=== PATIENT | female | born 1955 | race Caucasian/White ===

== ENCOUNTER 2022-09-23 08:48 | Emergency (ER) | payer MEDICARE, BC, SELFPAY ==
[2022-09-23 09:16] VITALS: BP 164/93; PULSE 75; RESP 16; TEMP 37.1; O2SAT 97; BMI 25.7
--- NOTE | 2022-09-23 10:23 | CRLHL7_ITS ---
For Patients: As a result of the Century Cures Act, medical imaging exams and procedure reports are released immediately into your electronic medical record. You may view this report before your referring provider. If you have questions, please contact your health care provider. INDICATION: Left hip pain. TECHNIQUE: AP pelvis. FINDINGS: Moderate degenerative arthritic change of the left hip with narrowing, spurring, and sclerosis. Degenerative change of the symphysis pubis. No fracture or dislocation. The sacroiliac joints are unremarkable. Surgical clip right lower quadrant. 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 Dictated by Jan Nova MD @ 09/23/2022 11:11:02 AM (Electronically Signed)
--- NOTE | 2022-09-23 10:24 | ED.GENADULT ---
HPI - General Adult General Chief complaint: Hip Injury/Pain Stated complaint: left hip pain Time Seen by Provider: 09/23/22 10:19 History of Present Illness HPI narrative: This 67-year-old female comes in with pain along the left iliac crest. This began yesterday. She does not report any particular injury event or strenuous activity to cause these symptoms. She states that she did not sleep well last night because this pain. The pain is worse when ambulating and relieved when laying on her right side. The pain does not radiate down her left leg. She does have some pain extending toward her low back. Related Data Previous Rx's Medication Instructions Recorded hydrocodone 5 mg-acetaminophen 325 1 tab PO Q4-6H PRN pain #15 tabs 09/23/22 mg tablet methylprednisolone 4 mg tablets in See Rx Instructions PO .COMPLEX 09/23/22 a dose pack (Medrol (Neto)) #21 ea Allergies Allergy/AdvReac Type Severity Reaction Status Date / Time No Known Drug Allergies Allergy Verified 09/23/22 09:18 Review of Systems Status of ROS: Reports: 10 or more systems reviewed and unremarkable except as noted in History and below Narrative: Constitutional: No fevers, no weight gain or loss. Eyes: No discharge. No vision changes. HENT: No congestion, no sore throat, no ear pain. Cardiovascular: No chest pain, no palpitations. Respiratory: No shortness of breath, no wheezes, no cough. Gastrointestinal: No abdominal pain, no vomiting, no diarrhea. Genitourinary: No dysuria, no hematuria. Musculoskeletal: Normal range of motion. Pain in the left iliac crest as described above. Skin: No rashes, no pruritis. Neurological: No dizziness, weakness, sensory change, speech change. Endo/Heme/Allergies: No bruising or bleeding. No polydipsia. Pysch: no suicidality, no anxiety, no insomnia. All other systems reviewed and are negative. Exam Narrative: Exam Narrative: Constitutional: Well-developed, well-nourished, no acute distress. HEENT: Normocephalic, atraumatic. Neck: Normal range of motion. Nontender. Supple. Heart: Intact distal pulses. Lungs: No chest discomfort. No wheezes, rhonchi, or rales. Abdomen: Nontender. Back: Normal range of motion. Extremities: Normal range of motion. She is able to ambulate normally but this causes worsening pain. She is able to stand on her left leg and extend her right leg. When standing on her right leg and extending her left leg laterally she has some increased pain. Skin: Intact. No rash. Warm. No erythema or pallor. Neurologic: No altered sensation. No weakness. Alert and oriented. Psychiatric: No suicidality. No anxiety or depression. No insomnia. Nursing notes and vitals signs are reviewed. Const: Vital Signs, click to edit/add: Vital Signs - 24 hr 09/23/22 09:16 Temperature 98.7 F Pulse Rate [Right Pulse Oximeter] 75 Respiratory Rate 16 Blood Pressure [Ri ght Upper Arm] 164/93 H Pulse Oximetry 97 Oxygen Delivery Me thod Room Air Course Vital Signs Vital signs: Initial Vital Signs Temperature 98.7 F 09/23/22 09:16 Temperature Source Temporal Artery Scan 09/23/22 09:16 Pulse Rate 75 09/23/22 09:16 Pulse Rhythm 09/23/22 09:16 Respiratory Rate 16 09/23/22 09:16 Blood Pressure 164/93 H 09/23/22 09:16 Blood Pressure Mean 116 09/23/22 09:16 Blood Pressure Position Sitting 09/23/22 09:16 Pulse Oximetry 97 09/23/22 09:16 Oxygen Delivery Method 09/23/22 09:16 Vital Signs Temperature 98.7 F 09/23/22 09:16 Pulse Rate 75 09/23/22 09:16 Respiratory Rate 16 09/23/22 09:16 Blood Pressure 164/93 H 09/23/22 09:16 Pulse Oximetry 97 09/23/22 09:16 Oxygen Delivery Method 09/23/22 09:16 Temperature 98.7 F 09/23/22 09:16 Pulse Rate 75 09/23/22 09:16 Respiratory Rate 16 09/23/22 09:16 Blood Pressure 164/93 H 09/23/22 09:16 Pulse Oximetry 97 09/23/22 09:16 Oxygen Delivery Method 09/23/22 09:16 Medical Decision Making MDM Narrative Medical decision making narrative: This patient comes in with left hip pain as described above. There was no particular injury event or strenuous activity to bring about this pain. It was significant enough where she had difficulty sleeping last night. Her exam is normal. She is able to stand on that left leg independently but this does produce pain. X-ray of the pelvis shows some [id number] degenerative changes. There are no other findings to explain her pain. She received a prescription for Standard and is encouraged to be active as tolerated. She may need follow-up with orthopedic clinic or perhaps an MRI if worsening. Imaging Data XR Pelvis: Radiologist's impression: FINDINGS: Moderate degenerative arthritic change of the left hip with narrowing, spurring, and sclerosis. Degenerative change of the symphysis pubis. No fracture or dislocation. The sacroiliac joints are unremarkable. Surgical clip right lower quadrant. 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 Discharge Plan Discharge Clinical Impression: Acute hip pain Patient Disposition: Home, Self-Care Condition: Stable Additional Instructions: Take medication as needed and indicated. Increase activity as tolerated. Follow up with orthopedic clinic or return if worsening symptoms occur. Prescriptions: New hydrocodone-acetaminophen 5-325 mg tablet 1 tab PO Q4-6H PRN (Reason: pain) Qty: 15 0RF methylprednisolone [Medrol (Neto)] 4 mg tablets,dose pack See Rx Instructions .ROUTE .COMPLEX Qty: 21 0RF Rx Instructions: orally per package directions Follow Up/Referrals: Anthony Nesbitt MD [Primary Care Provider] - Stand Alone Forms: [facility] [employer] Info Instructions
== END 2022-09-23 11:58 | disposition home or self-care (01) ==
PROVIDERS: Emergency Provider Emergency Medicine Emergency Medical Services; PCP Family Medicine
DX: M25.552 Pain in left hip (principal)
CPT/HCPCS: 72170; 99283; 99284

== ENCOUNTER 2023-02-06 12:57 | Outpatient (CLI) | payer MEDICARE, BC, SELFPAY ==
--- NOTE | 2023-02-06 13:20 | CRLHL7_ITS ---
For Patients: As a result of the Cures Act, medical imaging exams and procedure reports are released immediately into your electronic medical record. You may view this report before your referring provider. If you have questions, please contact your health care provider. BILATERAL SCREENING MAMMOGRAM WITH COMPUTER-AIDED DETECTION AND TOMOSYNTHESIS TECHNIQUE: CC and MLO views were obtained. These mammographic images have been obtained using full-field digital technique. These mammographic images were interpreted with the benefit of computer-aided detection. Breast Tomosynthesis was used in this interpretation. COMPARISON FILM: 08/07/19, 07/19/16, 09/27/12. FINDINGS: There are scattered areas of fibroglandular density IMPRESSION: There is no radiographic evidence for malignancy. ASSESSMENT: BI-RADS Category 1: Negative RECOMMENDATION: Routine screening mammogram in 1 year. A lay language report of this examination will be provided to the patient. Navi Adams M.D. Diagnostic Radiologist [email or web address] ROMARIO/Dictated by: Navi Adams MD @ 02/07/2023 1:12:00 PM ROMARIO/Dictated by: Navi Adams MD @ 02/07/2023 1:12:00 PM (Electronically Signed)
== END 2023-02-06 12:58 | disposition home or self-care (01) ==
LOC: MAMMO 12:58
PROVIDERS: PCP Family Medicine; Visit Provider Family Medicine
DX: Z12.31 Encounter for screening mammogram for malignant neoplasm of breast (principal)
CPT/HCPCS: 77063; 77067

== ENCOUNTER 2024-06-25 09:53 | Outpatient (CLI) | payer MEDICARE, BC, SELFPAY ==
--- NOTE | 2024-06-25 10:15 | CRLHL7_ITS ---
For Patients: As a result of the Cures Act, medical imaging exams and procedure reports are released immediately into your electronic medical record. You may view this report before your referring provider. If you have questions, please contact your health care provider. BILATERAL SCREENING MAMMOGRAM WITH COMPUTER-AIDED DETECTION AND TOMOSYNTHESIS TECHNIQUE: CC and MLO views were obtained. These mammographic images have been obtained using full-field digital technique. These mammographic images were interpreted with the benefit of computer-aided detection. Breast Tomosynthesis was used in this interpretation. COMPARISON FILM: 02/06/23, 08/07/19, 07/19/16. FINDINGS: There are scattered areas of fibroglandular density IMPRESSION: There is no radiographic evidence for malignancy. ASSESSMENT: BI-RADS Category 1: Negative RECOMMENDATION: Routine screening mammogram in 1 year. A lay language report of this examination will be provided to the patient. Navi Adams M.D. Diagnostic Radiologist [email or web address] Transcribed: 1:25 [email or web address]/Dictated by: Navi Adams MD @ 06/25/2024 11:59:00 AM (Electronically Signed)
== END 2024-06-25 09:54 | disposition home or self-care (01) ==
LOC: MAMMO 09:55
PROVIDERS: PCP Nurse Practitioner Family; Visit Provider Nurse Practitioner Family
DX: Z12.31 Encounter for screening mammogram for malignant neoplasm of breast (principal)
CPT/HCPCS: 77063; 77067

== ENCOUNTER 2025-07-23 12:41 | Outpatient (CLI) | payer MEDICARE, BC, SELFPAY ==
--- NOTE | 2025-07-23 13:00 | CRLHL7_ITS ---
For Patients: As a result of the Century Cures Act, medical imaging exams and procedure reports are released immediately into your electronic medical record. You may view this report before your referring provider. If you have questions, please contact your health care provider. INDICATION: BILATERAL SCREENING MAMMOGRAM, ASYMPTOMATIC 69 Y/O FEMALE COMPARISON: 06/25/2024, 02/06/2023, 08/07/2019 TECHNIQUE: Digital mammogram in CC and MLO projections including computer-aided detection (CAD) and tomosynthesis. BREAST COMPOSITION: There are scattered areas of fibroglandular density. FINDINGS: No suspicious findings. ASSESSMENT: BI-RADS 1 Negative RECOMMENDATION: Annual screening mammogram. A lay language report of this examination will be provided to the patient. Dictated by: Marisel Bentley MD @ 07/25/2025 13:09:47 (Electronically Signed)
== END 2025-07-23 12:42 | disposition home or self-care (01) ==
LOC: MAMMO 12:42
PROVIDERS: PCP Nurse Practitioner Family; Visit Provider Nurse Practitioner Family
DX: Z12.31 Encounter for screening mammogram for malignant neoplasm of breast (principal)
CPT/HCPCS: 77063; 77067